=== PATIENT | male | born 1940 | race Caucasian/White ===

== ENCOUNTER 2021-01-18 10:21 | Emergency (ER) | payer MEDICARE ==
[~2021-01-18] VITALS: Ht 170.2 cm; Wt 77.5 kg
[2021-01-18 11:13] LABS: BASOPHILS % (AUTO) 1 % (0-1); EOSINOPHILS % (AUTO) 2 % (1-7); LYMPHOCYTES % (AUTO) 32 % (22-44); MD NO; MEAN CORPUSCULAR HEMOGLOBIN 30.5 pg (27.5-34.5); MEAN CORPUSCULAR HGB CONC 33.8 g/dL (33.2-36.2); MEAN PLATELET VOLUME 9.2 fL (7.4-10.4); MONOCYTES % (AUTO) 7 % (2-9); NEUTROPHILS % (AUTO) 59 % (42-75); PLATELET COUNT 222 x10^3/uL (130-400); RED BLOOD COUNT 4.68 x10^6/uL (4.38-5.82); RED CELL DISTRIBUTION WIDTH 13.8 % (9.4-14.8)
[2021-01-18 11:19] LABS: ANION GAP 5 mmol/L (5-15); CALCIUM 8.8 mg/dL (8.5-10.1); CHLORIDE 112 mmol/L (98-107); CREATININE 1.08 mg/dL (0.7-1.3)
--- NOTE | 2021-01-18 11:23 | NUR ---
13F ARANGO CATHETER INSERTED PER MD ORDERS, BLOOD TINGED URINE RETURNED, TOLERATES WELL, STATES PAIN IS IMPROVING, SECURMENT DEVICE IN PLACE.
--- NOTE | 2021-01-18 11:24 | NUR ---
UA SENT TO LAB
[2021-01-18 11:33] LABS: MICROSCOPIC AUTO
--- NOTE | 2021-01-18 12:27 | NUR ---
PT AT IMAGING
--- NOTE | 2021-01-18 12:50 | NUR ---
BLADDER HAND IRRIGATED WITH APPROX 300CC STERILE H20, TOLERATES WELL, URINE RETURN IS LIGHT PINK, MD AWARE, WILL CONTINUE TO IRRIGATE NEEDED. VITALS STABLE. FAMILY AT BEDSIDE.
[2021-01-18 14:06] VITALS: BP 132/81
--- NOTE | 2021-01-18 14:08 | NUR ---
PT STABLE FOR DISCHARGE TO HOME. FAMILY AND PATIENT GIVEN INSTRUCTIONS FOR [facility]AN[facility] CATH CARE, DEMONSTRATION GIVEN, CAREGIVER RETURN DEMONSTRATES EFFECTIVE CATH CARE AND DRAINAGE. FOLOW UP INFORMATION REVIEWED, VERBALIZES UNDERSTANDING. PT ASSISST X 1 TO , TAKEN TO LOBBY WITH PERSONAL BELONGINGS BY FAMILY FOR PRIVATE TRANSFER TO HOME.
== END 2021-01-18 14:09 | disposition home or self-care (01) ==
LOC: ED 12:07
DX: N21.0 Calculus in bladder (principal); N40.1 Benign prostatic hyperplasia with lower urinary tract symptoms; R33.8 Other retention of urine; R30.0 Dysuria; I48.91 Unspecified atrial fibrillation; Z90.49 Acquired absence of other specified parts of digestive tract; Z79.01 Long term (current) use of anticoagulants
CPT/HCPCS: 36415; 51702; 74176; 80048; 81001; 85025; 93005; 99285

== ENCOUNTER → 2021-02-27 | Outpatient (CLI) | payer MEDICARE ==
[~2021-02-27] MED LIST: OMNIPAQUE 350 MG/ML, 150 ML BOTTLE ONE
== END | disposition home or self-care (01) ==
LOC: CFH 14:07
PROVIDERS: ATTEND Physician Assistant
DX: N21.0 Calculus in bladder (principal); R31.0 Gross hematuria
CPT/HCPCS: 74178; Q9967

== ENCOUNTER → 2021-04-07 | Outpatient (CLI) | payer MEDICARE ==
[~2021-04-07] MED LIST changes: +AMLO-211 PO; +ATOR20TA37 PO; +HYDR-3342 PO; +LOSA100T14 PO; +METO25TA35 PO; -OMNIPAQUE 350 MG/ML, 150 ML BOTTLE ONE; +RIVA20TA PO; +TAMS-11 PO
== END | disposition home or self-care (01) ==
LOC: STAR 14:22
PROVIDERS: ATTEND Urology
DX: Z01.818 Encounter for other preprocedural examination (principal); N40.1 Benign prostatic hyperplasia with lower urinary tract symptoms; I48.91 Unspecified atrial fibrillation; Z20.822 Contact with and (suspected) exposure to COVID-19
CPT/HCPCS: 93005; U0003; U0005

== ENCOUNTER 2021-04-13 12:15 | Observation (INO) | payer MEDICARE ==
[~2021-04-13] VITALS: Ht 170.2 cm; Wt 78.0 kg
[2021-04-13] MEDS ORDERED: FENTANYL PF 250 MCG/5ML ONE (12:53)
[2021-04-13 12:54] VITALS: BP 118/71
[2021-04-13] MEDS ORDERED: CEFAZOLIN 1,000 MG ONE (12:54)
[2021-04-13] MEDS ORDERED: PROPOFOL 10 MG/ML, 20ML ONE (12:54)
[2021-04-13] MEDS ORDERED: CHLORHEXIDINE 15 ML UDC ONE (12:56)
[2021-04-13] MEDS ORDERED: CHLORHEXIDINE 15 ML UDC PO ONE (13:00)
[2021-04-13] MEDS ORDERED: LACTATED RINGERS 1,000 ML IV SCH (13:00)
[2021-04-13] MEDS ORDERED: LABETALOL 5MG/ML, 20ML IV PRN (14:00)
[2021-04-13] MEDS ORDERED: ONDANSETRON 2MG/ML, 2ML IVPush PRN ×2 (14:00→16:30)
[2021-04-13] MEDS ORDERED: ACETAMINOPHEN 325 MG TABLET PO PRN (14:00)
[2021-04-13] MEDS ORDERED: OXYcodone 5 MG/5 ML ORAL.SOL UDC PO PRN (14:00)
[2021-04-13] MEDS ORDERED: morphine SULFATE 10 MG/ML, 1ML IVPush PRN (14:00)
[2021-04-13] MEDS ORDERED: hydrALAzine 20 MG/ML, 1ML IV PRN (14:00)
[2021-04-13] MEDS ORDERED: MEPERIDINE/PF 25MG/0.5ML IVPush PRN (14:00)
[2021-04-13] MEDS ORDERED: FENTANYL PF 100 MCG/2ML IV PRN (14:00)
[2021-04-13] MEDS ORDERED: HYDROmorphone 1 MG/ML, 1ML INJ IVPush PRN (14:00)
[2021-04-13] MEDS ORDERED: VASOPRESSIN 20 UNIT/ML, 1ML ONE (15:03)
[2021-04-13] MEDS ORDERED: OXYcodone/APAP 5/325MG TABLET PO PRN (16:30)
[2021-04-13] MEDS ORDERED: OPIUM/BELLADONNA SUPP.RECT 16.2-30 MG PR PRN (16:30)
[2021-04-13] MEDS ORDERED: OXYcodone 5 MG/5 ML ORAL.SOL UDC ONE (16:56)
[2021-04-13] MEDS ORDERED: FENTANYL PF 100 MCG/2ML ONE (16:56)
[2021-04-13] MEDS: METOPROLOL TARTRATE 25 MG TAB PO SCH (19:20)
[2021-04-13 20:07] VITALS: BP 123/80
[2021-04-13] MEDS ORDERED: ATORVASTATIN 20 MG TABLET PO SCH (21:00)
[2021-04-13] MEDS: POTASSIUM CHLORIDE 20 MEQ in D5%-0.9% NACL 1,000 ML IV SCH (21:09)
[2021-04-13 23:32] VITALS: BP 111/75
[2021-04-14 03:13] VITALS: BP 116/80
[2021-04-14] MEDS: METOPROLOL TARTRATE 25 MG TAB PO SCH (05:49)
[2021-04-14] MEDS: POTASSIUM CHLORIDE 20 MEQ in D5%-0.9% NACL 1,000 ML IV SCH (06:16)
[2021-04-14 06:30] VITALS: BP 119/73
[2021-04-14] MEDS ORDERED: AMLODIPINE 10 MG TAB PO SCH (09:00)
[2021-04-14] MEDS ORDERED: LOSARTAN 100 MG TAB PO SCH (09:00)
[2021-04-14] MEDS ORDERED: TAMSULOSIN 0.4 MG CAP.ER.24H PO SCH (09:00)
[2021-04-14 09:46] VITALS: BP 150/94
== END 2021-04-14 15:04 | disposition home or self-care (01) ==
LOC: OUT 12:15 → 4NE 17:23 → OUT 21:26 → DCLOUNGE 04-14 14:56
PROVIDERS: ADMIT Urology; ATTEND Urology
DX: N21.0 Calculus in bladder (principal); N40.1 Benign prostatic hyperplasia with lower urinary tract symptoms; R33.8 Other retention of urine; I10 Essential (primary) hypertension; I48.91 Unspecified atrial fibrillation; E78.5 Hyperlipidemia, unspecified; Z86.73 Personal history of transient ischemic attack (TIA), and cerebral infarction without residual deficits; Z79.899 Other long term (current) drug therapy
CPT/HCPCS: 52318; 52601; 82360; 88300; 88305; 96361; 96374; G0378; J0690; J2405; J2704; J3010; J3480; J7042; J7120